=== PATIENT | female | born 1945 | race Caucasian/White ===

== ENCOUNTER 2019-11-25 06:00 | Inpatient (IN) ==
[2019-11-25] MEDS ORDERED: DEXTROSE 50% 25 GM/50 ML VIAL IV PRN (08:36)
[2019-11-25] MEDS ORDERED: GLUCAGON 1 MG VIAL IM PRN (08:36)
[2019-11-25] MEDS ORDERED: CEFUROXIME INJ 1,500 MG in SYRINGE 1 EACH IV ONE (08:36)
[2019-11-25] MEDS ORDERED: NITROGLYCERIN SL 0.4 MG TABLET SL PRN (08:46)
[2019-11-25] MEDS ORDERED: ZALEPLON 5 MG CAPSULE PO PRN (08:46)
[2019-11-25 10:24] LABS: Basophils % 0.7 % (0.0-0.8); Eosinophils # 0.2 10*3/uL (0.0-0.87); Eosinophils % 3.7 % (0.00-10.9); Hematocrit 41.7 VOL% (35.7-47.0); Hemoglobin 14.9 GM/DL (12.0-16.0); Immature Granulocytes % 0.2 %; Immature Granulocytes Absolute 0.01 #; Lymphocytes # 2.1 10*3/uL (1.4-4.0); Lymphocytes % 36.8 % (21.3-54.2); Mean Corpuscular HGB Conc 35.7 GM/DL (32-36); Mean Corpuscular Volume 96.8 FL (87-102); Mean Platelet Volume 10.2 FL (9.6-12.0); Monocytes % 9.8 % (1.7-12.7); Neutrophils % 48.8 % (38.7-73.9); Platelet Count 175 T/CUMM (130-400); Red Blood Count 4.31 MC/CUMM (3.8-5.5); Red Cell Distribution Width 11.9 % (9.3-17.3); White Blood Count 5.7 T/CUMM (4-12)
[2019-11-25 10:49] LABS: Albumin 4.2 G/DL (3.4-5.0); Bilirubin,Total 1.1 MG/DL (0.2-1.0); Calcium 9.4 MG/DL (8.5-10.1); Osmolality,Calculated 279.7 MOS/KG (273-304)
[2019-11-25] MEDS: SODIUM CHLORIDE 0.9% 1,000 ML IV SCH (11:00)
[2019-11-25] MEDS: CHLORHEXIDINE 0.12% ORAL RINSE 60 ML BOTTLE SWISH/SPIT SCH ×2 (11:22→21:05)
[2019-11-25] MEDS: CHLORHEXIDINE 4% SOLN 118 ML BOTTLE TOP SCH ×3 (11:24→21:05)
[2019-11-25] MEDS ORDERED: CLORAZEPATE 3.75 MG TABLET PO PRN (11:35)
[2019-11-25 11:46] LABS: ABG Base Excess 3.1 MMOL/L (-2.5-2.5); ABG HCO3 26.9 MMOL/L (20-26); ABG PCO2 38.5 MM HG (35-48); ABG PH 7.462 (7.35-7.45); ABG PO2 91.2 MM HG (80-95); ABG TCO2 28.1 MMOL/L (23-27); Allen Test Positive; Pt O2 Delivery Device Room Air
[2019-11-25] MEDS ORDERED: FAMOTIDINE 20 MG TABLET PO ONE (15:21)
[2019-11-25] MEDS ORDERED: DIAZEPAM 5 MG TABLET PO ONE (15:21)
[2019-11-25] MEDS: carvediloL 12.5 MG TABLET PO SCH (21:02)
[2019-11-26] MEDS: CHLORHEXIDINE 4% SOLN 118 ML BOTTLE TOP SCH (02:27)
[2019-11-26] MEDS ORDERED: PAPAVERINE 60 MG/2 ML VIAL ONE (04:23)
[2019-11-26] MEDS ORDERED: VANCOMYCIN 1,000 MG VIAL ONE (04:24)
[2019-11-26] MEDS ORDERED: VANCOMYCIN 500 MG VIAL ONE (04:24)
[2019-11-26] MEDS: carvediloL 12.5 MG TABLET PO SCH ×2 (05:40→10:44)
[2019-11-26] MEDS ORDERED: CALCIUM CHLORIDE 1,000 MG/10 ML VIAL IV ONE (05:40)
[2019-11-26] MEDS ORDERED: LIDOCAINE 2% 5 ML VIAL ONE ×2 (05:40→11:03)
[2019-11-26] MEDS ORDERED: MIDAZOLAM 10 MG/2 ML VIAL ONE ×2 (05:41→05:42)
[2019-11-26] MEDS ORDERED: SUFentanil 250 MCG/5 ML AMP ONE (05:41)
[2019-11-26] MEDS ORDERED: PHENYLEPHRINE DRIP 20 MG/250 ML PREMIX IV ONE (05:41)
[2019-11-26] MEDS ORDERED: HEPARIN/NACL 0.9% 2 UNITS/ML 500 ML IV ONE (05:41)
[2019-11-26] MEDS ORDERED: ePHEDrine 50 MG/ML VIAL ONE (05:42)
[2019-11-26] MEDS ORDERED: NITROGLYCERIN DRIP 50 MG/250 ML BOTTLE IV ONE (05:42)
[2019-11-26] MEDS ORDERED: ETOMIDATE 40 MG/20 ML VIAL IV ONE (05:42)
[2019-11-26] MEDS ORDERED: MINERAL OIL/PETROLATUM OPH OINT 3.5 GM TUBE ONE (05:42)
[2019-11-26] MEDS ORDERED: VECURONIUM 10 MG VIAL IV ONE (05:42)
[2019-11-26] MEDS ORDERED: LACTATED RINGERS 1,000 ML IV ONE (05:43)
[2019-11-26] MEDS ORDERED: AMINOCAPROIC ACID 5,000 MG/20 ML VIAL ONE (05:43)
[2019-11-26] MEDS ORDERED: SODIUM CHLORIDE 0.9% 250 ML IV ONE (05:43)
[2019-11-26] MEDS ORDERED: SODIUM CHLORIDE 0.9% 1,000 ML IV ONE (05:43)
[2019-11-26] MEDS ORDERED: CEFUROXIME INJ 1,500 MG in SYRINGE 1 EACH IV ONE (06:00)
[2019-11-26] MEDS ORDERED: DIAZEPAM 5 MG TABLET PO ONE (06:00)
[2019-11-26] MEDS ORDERED: FAMOTIDINE 20 MG TABLET PO ONE (06:00)
[2019-11-26 07:43] LABS: ABG Base Excess 2.3 MMOL/L (-2.5-2.5); ABG HCO3 26.4 MMOL/L (20-26); ABG PCO2 37.2 MM HG (35-48); ABG PH 7.453 (7.35-7.45); ABG TCO2 22.4 MMOL/L (23-27); Glucose Heart Surgery 114 MG/DL (74-106); Hematocrit Heart Surgery 41.8 PERCENT (37-47); Hemoglobin Heart Surgery 13.6 G/DL (12.0-16.0); Ionized Calcium Arterial 1.17 MMOL/L (1.21-1.46); PCO2 Patient Temp Arterial 37.2 MMHG; PH Patient Temp Arterial 7.453; Patient Temperature 37 CELCIUS; Potassium Heart/CVR 3.7 MMOL/L (3.5-5.1); Sodium Heart/CVR 140 MMOL/L (135-145)
[2019-11-26 07:46] LABS: Apearance,Urine CLEAR (Clear); Bilirubin,Urine Negative (Negative); Blood, Urine Small mg/dL (Negative); Glucose,Urine (UA) Negative (Negative); Ketones,Urine Negative (Negative); Nitrite,Urine Negative (Negative); Protein,Urine Negative; RBC,Urine 1 /HPF (0-4); Squamous Epithelial Cell,Urine Occasional /HPF (0-10); Urine Color Yellow (Yellow); Urine Specific Gravity 1.009 (1.001-1.035); Urine Urobilinogen < 2.0 EU/DL (0.2-1.0)
[2019-11-26] MEDS ORDERED: PHENYLEPHRINE DRIP 40 MG/250 ML PREMIX IV ONE (08:26)
[2019-11-26] MEDS ORDERED: NITROPRUSSIDE 50 MG/2 ML VIAL ONE ×2 (08:26→17:19)
[2019-11-26] MEDS ORDERED: SODIUM BICARBONATE 50 MEQ/50 ML VIAL IV ONE ×2 (08:27→11:03)
[2019-11-26] MEDS ORDERED: POTASSIUM CHLORIDE RIDER 100 ML IV ONE (08:27)
[2019-11-26] MEDS ORDERED: CALCIUM CHLORIDE 1,000 MG/10 ML SYRINGE IV ONE (08:27)
[2019-11-26 09:24] LABS: Hemoglobin Heart Surgery 8.7 G/DL (12.0-16.0); PCO2 Patient Temp Venous 32.1 MM HG; PH Patient Temp Venous 7.481; PO2 Patient Temp Venous 38.8 MM HG; Potassium Heart/CVR 4.2 MMOL/L (3.5-5.1); VBG Base Excess 0.2 MEQ/L (0-4); VBG HCO3 23.4 MEQ/L (24-28); VBG Oxygen Saturation 75.6 %; VBG PCO2 32.1 MMHG (41-51); VBG PH 7.481; VBG PO2 38.8 MMHG (17-40)
[2019-11-26 09:52] LABS: Hematocrit Heart Surgery 27.6 PERCENT (37-47); Hemoglobin Heart Surgery 8.9 G/DL (12.0-16.0); PCO2 Patient Temp Venous 28.1 MM HG; PH Patient Temp Venous 7.559; PO2 Patient Temp Venous 33.6 MM HG; Potassium Heart/CVR 4.5 MMOL/L (3.5-5.1); VBG Base Excess 3.4 MEQ/L (0-4); VBG HCO3 27.2 MEQ/L (24-28); VBG Oxygen Saturation 81.8 %; VBG PCO2 32.5 MMHG (41-51); VBG PH 7.513; VBG PO2 41.4 MMHG (17-40)
[2019-11-26 10:19] LABS: Hemoglobin Heart Surgery 8.3 G/DL (12.0-16.0); PCO2 Patient Temp Venous 30.2 MM HG; PH Patient Temp Venous 7.525; PO2 Patient Temp Venous 34.1 MM HG; Potassium Heart/CVR 4.5 MMOL/L (3.5-5.1); VBG Base Excess 2.4 MEQ/L (0-4); VBG HCO3 26.2 MEQ/L (24-28); VBG Oxygen Saturation 70.9 %; VBG PCO2 30.2 MMHG (41-51); VBG PH 7.525; VBG PO2 34.1 MMHG (17-40)
[2019-11-26] MEDS: SODIUM CHLORIDE 0.9% 1,000 ML IV SCH (10:44)
[2019-11-26] MEDS: CHLORHEXIDINE 0.12% ORAL RINSE 60 ML BOTTLE SWISH/SPIT SCH (10:45)
[2019-11-26 10:49] LABS: ABG Base Excess 1.2 MMOL/L (-2.5-2.5); ABG HCO3 25.5 MMOL/L (20-26); ABG PCO2 33.1 MM HG (35-48); ABG PH 7.477 (7.35-7.45); ABG TCO2 22.5 MMOL/L (23-27); Glucose Heart Surgery 238 MG/DL (74-106); Hematocrit Heart Surgery 27.1 PERCENT (37-47); Hemoglobin Heart Surgery 8.7 G/DL (12.0-16.0); Ionized Calcium Arterial 1.05 MMOL/L (1.21-1.46); PCO2 Patient Temp Arterial 33.1 MMHG; PH Patient Temp Arterial 7.477; Patient Temperature 37 CELCIUS; Sodium Heart/CVR 130 MMOL/L (135-145)
[2019-11-26] MEDS ORDERED: DEXTROSE 5% KCL 20 MEQ 20 MEQ/1,000 ML BAG IV ONE (11:03)
[2019-11-26] MEDS ORDERED: MAGNESIUM SULFATE 5 GM/10 ML VIAL IV ONE (11:03)
[2019-11-26] MEDS ORDERED: MANNITOL 100 GM/500 ML BAG IV ONE (11:03)
[2019-11-26] MEDS ORDERED: ALBUMIN 25% 25 GM/100 ML VIAL IV ONE (11:03)
[2019-11-26] MEDS ORDERED: HEPARIN 10,000 UNIT/10 ML VIAL ONE (11:04)
[2019-11-26] MEDS ORDERED: FUROSEMIDE 20 MG/2 ML VIAL ONE (11:04)
[2019-11-26] MEDS ORDERED: methylPREDNISolone SOD SUC 1,000 MG/8 ML VIAL ONE (11:04)
[2019-11-26] MEDS ORDERED: PROTAMINE SULFATE 50 MG/5 ML VIAL IV ONE ×2 (11:04→11:47)
[2019-11-26] MEDS ORDERED: PHENYLEPHRINE DRIP 40 MG/250 ML PREMIX IV PRN (11:22)
[2019-11-26] MEDS ORDERED: MORPHINE 4 MG/1 ML VIAL IV PRN (11:22)
[2019-11-26] MEDS ORDERED: MAGNESIUM SULF RIDER 2 GM in PREMIX 1 EACH IV PRN (11:22)
[2019-11-26] MEDS ORDERED: CALCIUM CHLORIDE 1,000 MG/10 ML SYRINGE IV PRN (11:22)
[2019-11-26] MEDS ORDERED: MIDAZOLAM 10 MG/2 ML VIAL IV PRN (11:22)
[2019-11-26] MEDS ORDERED: LACTATED RINGERS 250 ML IV PRN (11:22)
[2019-11-26] MEDS ORDERED: DEXTROSE 50% 25 GM/50 ML VIAL IV PRN ×2 (11:22)
[2019-11-26] MEDS ORDERED: VECURONIUM 10 MG VIAL IV PRN ×2 (11:22)
[2019-11-26] MEDS ORDERED: POTASSIUM CHLORIDE RIDER 10 MEQ in PREMIX 1 EACH IV PRN (11:22)
[2019-11-26] MEDS ORDERED: ONDANSETRON 4 MG/2 ML VIAL IV PRN (11:22)
[2019-11-26] MEDS ORDERED: ACETAMINOPHEN 650 MG SUPP RECTAL PRN (11:22)
[2019-11-26] MEDS ORDERED: INSULIN REGULAR 100 UNIT/ML IV ONE (11:22)
[2019-11-26] MEDS ORDERED: CHLORHEXIDINE 4% SOLN 118 ML BOTTLE TOP PRN (11:22)
[2019-11-26] MEDS ORDERED: NITROPRUSSIDE 100 MG in DEXTROSE 5% 250 ML IV PRN (11:22)
[2019-11-26] MEDS ORDERED: MIDAZOLAM 2 MG/2 ML VIAL IV PRN (11:22)
[2019-11-26] MEDS ORDERED: MORPHINE 10 MG/1 ML VIAL IV PRN (11:22)
[2019-11-26] MEDS ORDERED: MAGNESIUM SULF RIDER 4 GM in PREMIX 1 EACH IV PRN (11:22)
[2019-11-26] MEDS ORDERED: INSULIN REGULAR 100 UNIT/ML IV PRN (11:22)
[2019-11-26] MEDS ORDERED: SODIUM CHLORIDE 0.45% 1,000 ML IV SCH ×2 (11:30)
[2019-11-26] MEDS ORDERED: INSULIN REGULAR DRIP 100 ML IV SCH (11:30)
[2019-11-26 11:46] LABS: ABG Base Excess -0.3 MMOL/L (-2.5-2.5); ABG HCO3 24.2 MMOL/L (20-26); ABG PCO2 37.9 MM HG (35-48); ABG PH 7.412 (7.35-7.45); ABG TCO2 21.9 MMOL/L (23-27); Glucose Heart Surgery 204 MG/DL (74-106); Hematocrit Heart Surgery 30.3 PERCENT (37-47); Hemoglobin Heart Surgery 9.8 G/DL (12.0-16.0); Potassium Heart/CVR 3.4 MMOL/L (3.5-5.1)
[2019-11-26 11:47] LABS: Basophils % 0.3 % (0.0-0.8); Eosinophils # 0.1 10*3/uL (0.0-0.87); Eosinophils % 0.8 % (0.00-10.9); Hematocrit 27.5 VOL% (35.7-47.0); Hemoglobin 9.6 GM/DL (12.0-16.0); Immature Granulocytes % 0.4 %; Immature Granulocytes Absolute 0.03 #; Lymphocytes # 1.2 10*3/uL (1.4-4.0); Lymphocytes % 15.7 % (21.3-54.2); Mean Corpuscular HGB Conc 34.9 GM/DL (32-36); Mean Corpuscular Volume 98.2 FL (87-102); Mean Platelet Volume 10.1 FL (9.6-12.0); Monocytes % 6.1 % (1.7-12.7); Neutrophils % 76.7 % (38.7-73.9); Platelet Count 121 T/CUMM (130-400); Red Cell Distribution Width 11.9 % (9.3-17.3); White Blood Count 7.6 T/CUMM (4-12)
[2019-11-26 11:57] LABS: INR 1.3; Partial Thromboplastin Time 30.4 SECS (23.9-33.8)
[2019-11-26] MEDS: POTASSIUM CHLORIDE RIDER 20 MEQ in PREMIX 1 EACH IV PRN ×4 (12:00→18:50)
[2019-11-26] MEDS: ALBUMIN 5% 12.5 GM in PREMIX 1 EACH IV PRN ×2 (12:10→13:56)
[2019-11-26 12:14] LABS: Troponin I 5.44 NG/ML (0.00-0.045)
[2019-11-26 12:26] LABS: Albumin 2.6 G/DL (3.4-5.0); Bilirubin,Total 1.2 MG/DL (0.2-1.0); Calcium 8.9 MG/DL (8.5-10.1); Osmolality,Calculated 278.8 MOS/KG (273-304); Total Protein 4.7 G/DL (6.4-8.3)
[2019-11-26 13:17] LABS: ABG Base Excess -2.5 MMOL/L (-2.5-2.5); ABG HCO3 22.3 MMOL/L (20-26); ABG Oxygen Saturation 98.9 % (95-100); ABG PH 7.353 (7.35-7.45); Glucose Heart Surgery 191 MG/DL (74-106); Hematocrit Heart Surgery 29.8 PERCENT (37-47); Hemoglobin Heart Surgery 9.6 G/DL (12.0-16.0); Potassium Heart/CVR 4.6 MMOL/L (3.5-5.1)
[2019-11-26 15:59] LABS: ABG Base Excess -2.2 MMOL/L (-2.5-2.5); ABG HCO3 22.6 MMOL/L (20-26); ABG Oxygen Saturation 99.3 % (95-100); ABG PCO2 41.1 MM HG (35-48); ABG PH 7.358 (7.35-7.45); ABG TCO2 21.4 MMOL/L (23-27); Glucose Heart Surgery 152 MG/DL (74-106); Hematocrit Heart Surgery 27.8 PERCENT (37-47); Potassium Heart/CVR 3.8 MMOL/L (3.5-5.1)
[2019-11-26 18:39] LABS: ABG HCO3 22.7 MMOL/L (20-26); ABG Oxygen Saturation 97.9 % (95-100); ABG PCO2 43.1 MM HG (35-48); ABG PO2 125.9 MM HG (80-95); ABG TCO2 24.1 MMOL/L (23-27); Glucose Heart Surgery 165 MG/DL (74-106); Hemoglobin Heart Surgery 11.9 G/DL (12.0-16.0); Potassium Heart/CVR 4.4 MMOL/L (3.5-5.1)
[2019-11-26] MEDS: CEFUROXIME INJ 1,500 MG in SYRINGE 1 EACH IV SCH (18:50)
[2019-11-26 18:57] LABS: CKMB % 5.6 %
[2019-11-26 19:02] LABS: Troponin I 9.24 NG/ML (0.00-0.045)
[2019-11-26 19:53] LABS: ABG Base Excess -2.7 MMOL/L (-2.5-2.5); ABG HCO3 22.1 MMOL/L (20-26); ABG Oxygen Saturation 98.1 % (95-100); ABG PCO2 45.7 MM HG (35-48); ABG TCO2 21.2 MMOL/L (23-27); Glucose Heart Surgery 160 MG/DL (74-106); Hematocrit Heart Surgery 35.4 PERCENT (37-47); Hemoglobin Heart Surgery 11.5 G/DL (12.0-16.0)
[2019-11-26] MEDS: KETOROLAC 30 MG/1 ML VIAL IV SCH (20:19)
[2019-11-26 20:44] LABS: ABG Base Excess -2.9 MMOL/L (-2.5-2.5); ABG HCO3 21.9 MMOL/L (20-26); ABG Oxygen Saturation 95.9 % (95-100); ABG PCO2 45.2 MM HG (35-48); ABG PO2 84.6 MM HG (80-95); Glucose Heart Surgery 151 MG/DL (74-106); Hematocrit Heart Surgery 35.4 PERCENT (37-47); Hemoglobin Heart Surgery 11.5 G/DL (12.0-16.0); Potassium Heart/CVR 4.4 MMOL/L (3.5-5.1)
[2019-11-26] MEDS ORDERED: CHLORHEXIDINE 0.12% ORAL RINSE 60 ML BOTTLE SWISH/SPIT SCH (21:00)
[2019-11-26] MEDS ORDERED: FUROSEMIDE 40 MG/4 ML VIAL IV ONE (23:06)
[2019-11-27] MEDS: KETOROLAC 30 MG/1 ML VIAL IV SCH ×4 (02:11→20:59)
[2019-11-27 03:08] LABS: ABG Base Excess -3.8 MMOL/L (-2.5-2.5); ABG HCO3 21.3 MMOL/L (20-26); ABG Oxygen Saturation 96.6 % (95-100); ABG PH 7.356 (7.35-7.45); ABG PO2 98.6 MM HG (80-95); ABG TCO2 22.5 MMOL/L (23-27); Glucose Heart Surgery 114 MG/DL (74-106); Hemoglobin Heart Surgery 11.3 G/DL (12.0-16.0); Potassium Heart/CVR 3.7 MMOL/L (3.5-5.1)
[2019-11-27 03:16] LABS: Basophils % 0.1 % (0.0-0.8); Hematocrit 33.1 VOL% (35.7-47.0); Hemoglobin 11.3 GM/DL (12.0-16.0); Immature Granulocytes % 0.5 %; Immature Granulocytes Absolute 0.05 #; Lymphocytes % 9.1 % (21.3-54.2); Mean Corpuscular HGB Conc 34.1 GM/DL (32-36); Mean Corpuscular Volume 94.6 FL (87-102); Mean Platelet Volume 10.8 FL (9.6-12.0); Monocytes % 5.8 % (1.7-12.7); Neutrophils % 84.5 % (38.7-73.9); Platelet Count 104 T/CUMM (130-400); Red Cell Distribution Width 15.5 % (9.3-17.3); White Blood Count 10.8 T/CUMM (4-12)
[2019-11-27] MEDS: POTASSIUM CHLORIDE RIDER 20 MEQ in PREMIX 1 EACH IV PRN (03:28)
[2019-11-27 03:37] LABS: Albumin 3.5 G/DL (3.4-5.0); Bilirubin,Direct 0.17 MG/DL (0.0-0.20); Bilirubin,Total 0.5 MG/DL (0.2-1.0); Calcium 7.9 MG/DL (8.5-10.1); Osmolality,Calculated 287.8 MOS/KG (273-304); Total Protein 5.8 G/DL (6.4-8.3)
[2019-11-27 03:40] LABS: CKMB % 5.9 %
[2019-11-27 03:44] LABS: Troponin I 23.2 NG/ML (0.00-0.045)
[2019-11-27] MEDS ORDERED: NITROGLYCERIN SL 0.4 MG TABLET SL PRN (06:20)
[2019-11-27] MEDS: CEFUROXIME INJ 1,500 MG in SYRINGE 1 EACH IV SCH (06:29)
[2019-11-27] MEDS: LEVOTHYROXINE 112 MCG TABLET PO SCH (06:29)
[2019-11-27] MEDS ORDERED: ONDANSETRON 4 MG/2 ML VIAL IV PRN (07:09)
[2019-11-27] MEDS ORDERED: MAGNESIUM SULF RIDER 2 GM in PREMIX 1 EACH IV PRN (07:09)
[2019-11-27] MEDS ORDERED: ZALEPLON 5 MG CAPSULE PO PRN (07:09)
[2019-11-27] MEDS ORDERED: MAGNESIUM HYDROXIDE SUSP 30 ML UDCUP PO PRN (07:09)
[2019-11-27] MEDS ORDERED: MAGNESIUM SULF RIDER 4 GM in PREMIX 1 EACH IV PRN (07:09)
[2019-11-27] MEDS ORDERED: ACETAMINOPHEN 325 MG TABLET PO PRN (07:09)
[2019-11-27] MEDS ORDERED: ALUMINUM/MAGNES/SIMETH MAX STR 30 ML UDCUP PO PRN (07:09)
[2019-11-27] MEDS ORDERED: DEXTROSE 50% 25 GM/50 ML VIAL IV PRN ×2 (07:09)
[2019-11-27] MEDS ORDERED: GLUCAGON 1 MG VIAL IM PRN ×2 (07:09)
[2019-11-27] MEDS ORDERED: POTASSIUM CHLORIDE 20 MEQ TABLET PO PRN (07:09)
[2019-11-27] MEDS: INSULIN REGULAR 100 UNIT/ML SUBCUT SCH ×4 (08:15→21:19)
[2019-11-27] MEDS: FERROUS SULFATE 325 MG TABLET PO SCH (08:23)
[2019-11-27] MEDS: DOCUSATE SODIUM 100 MG CAPSULE PO SCH (08:23)
[2019-11-27] MEDS: ASPIRIN EC 325 MG TABLET PO SCH (08:23)
[2019-11-27] MEDS: amLODIPine 2.5 MG TABLET PO SCH (08:24)
[2019-11-27] MEDS: MAGNESIUM GLUCONATE 500 MG TABLET PO SCH (08:24)
[2019-11-27] MEDS: lisinopriL 20 MG TABLET PO SCH (08:25)
[2019-11-27] MEDS: carvediloL 12.5 MG TABLET PO SCH ×2 (08:25→20:58)
[2019-11-27] MEDS: MULTIVITAMIN (CENTRUM) TABLET PO SCH (08:25)
[2019-11-27] MEDS: OMEGA 3 ACID ETHYL ESTERS 1 GM CAPSULE PO SCH (08:26)
[2019-11-27] MEDS: COENZYME Q10 100 MG CAPSULE PO SCH (08:26)
[2019-11-27] MEDS: PANTOPRAZOLE 40 MG TABLET PO SCH (08:26)
[2019-11-27] MEDS: NON-FORMULARY MEDICATION (Cyanocobalamin (Vitamin B-12) [Vitamin B-12] 2,500 MCG) SL SCH (08:28)
[2019-11-27] MEDS: CHLORHEXIDINE 0.12% ORAL RINSE 60 ML BOTTLE SWISH/SPIT SCH ×2 (08:33→21:19)
[2019-11-27] MEDS: SODIUM CHLOR 0.45% KCL 20 MEQ 20 MEQ/1,000 ML BAG IV SCH (09:00)
[2019-11-27] MEDS: oxyCODONE/ACETAMINOPHEN 5-325 MG TABLET PO PRN ×2 (16:20→20:58)
[2019-11-27] MEDS: PHENOBARBITAL PO SCH (22:47)
[2019-11-27] MEDS: BELLADONNA ALKALOIDS PO SCH (22:47)
[2019-11-27] MEDS: ERGOTAMINE PO SCH (22:47)
[2019-11-28] MEDS: KETOROLAC 30 MG/1 ML VIAL IV SCH ×4 (02:18→20:58)
[2019-11-28] MEDS: oxyCODONE/ACETAMINOPHEN 5-325 MG TABLET PO PRN ×3 (02:19→14:22)
[2019-11-28 05:16] LABS: Basophils % 0.2 % (0.0-0.8); Eosinophils # 0.1 10*3/uL (0.0-0.87); Eosinophils % 0.6 % (0.00-10.9); Hematocrit 26.2 VOL% (35.7-47.0); Hemoglobin 8.7 GM/DL (12.0-16.0); Immature Granulocytes % 0.6 %; Immature Granulocytes Absolute 0.05 #; Lymphocytes # 1.6 10*3/uL (1.4-4.0); Lymphocytes % 18.8 % (21.3-54.2); Mean Corpuscular HGB Conc 33.2 GM/DL (32-36); Mean Corpuscular Volume 97.4 FL (87-102); Mean Platelet Volume 10.9 FL (9.6-12.0); Monocytes % 8.4 % (1.7-12.7); Neutrophils % 71.4 % (38.7-73.9); Platelet Count 77 T/CUMM (130-400); Red Blood Count 2.69 MC/CUMM (3.8-5.5); Red Cell Distribution Width 15.2 % (9.3-17.3); White Blood Count 8.3 T/CUMM (4-12)
[2019-11-28 05:37] LABS: Albumin 2.8 G/DL (3.4-5.0); Bilirubin,Direct 0.15 MG/DL (0.0-0.20); Bilirubin,Indirect 0.3 MG/DL (0.0-1.0); Bilirubin,Total 0.4 MG/DL (0.2-1.0); CKMB % 1.5 %; Calcium 8.1 MG/DL (8.5-10.1); Osmolality,Calculated 280.5 MOS/KG (273-304); Total Protein 5.5 G/DL (6.4-8.3)
[2019-11-28 05:39] LABS: Troponin I 11.3 NG/ML (0.00-0.045)
[2019-11-28 05:51] LABS: Band Neutrophils 2 % (0-10); Lymphocytes 16 % (20-55); Segmented Neutrophils 77 % (50-85); Total Cells Counted 100
[2019-11-28 05:52] LABS: Microcytosis Slight
[2019-11-28] MEDS ORDERED: FUROSEMIDE 40 MG/4 ML VIAL IV ONE (06:00)
[2019-11-28] MEDS: LEVOTHYROXINE 112 MCG TABLET PO SCH (06:27)
[2019-11-28] MEDS: PANTOPRAZOLE 40 MG TABLET PO SCH (09:29)
[2019-11-28] MEDS: MULTIVITAMIN (CENTRUM) TABLET PO SCH (09:30)
[2019-11-28] MEDS: FERROUS SULFATE 325 MG TABLET PO SCH ×2 (09:30→20:55)
[2019-11-28] MEDS: carvediloL 12.5 MG TABLET PO SCH ×2 (09:30→20:55)
[2019-11-28] MEDS: COENZYME Q10 100 MG CAPSULE PO SCH (09:30)
[2019-11-28] MEDS: SIMVASTATIN 20 MG TABLET PO SCH (09:30)
[2019-11-28] MEDS: ASPIRIN EC 325 MG TABLET PO SCH (09:31)
[2019-11-28] MEDS: lisinopriL 20 MG TABLET PO SCH (09:31)
[2019-11-28] MEDS: DOCUSATE SODIUM 100 MG CAPSULE PO SCH (09:31)
[2019-11-28] MEDS: MAGNESIUM GLUCONATE 500 MG TABLET PO SCH (09:32)
[2019-11-28] MEDS: INSULIN REGULAR 100 UNIT/ML SUBCUT SCH ×4 (09:32→21:21)
[2019-11-28] MEDS: NON-FORMULARY MEDICATION (Cyanocobalamin (Vitamin B-12) [Vitamin B-12] 2,500 MCG) SL SCH (09:32)
[2019-11-28] MEDS: OMEGA 3 ACID ETHYL ESTERS 1 GM CAPSULE PO SCH (09:32)
[2019-11-28] MEDS: CHLORHEXIDINE 0.12% ORAL RINSE 60 ML BOTTLE SWISH/SPIT SCH ×2 (09:33→21:00)
[2019-11-28] MEDS: amLODIPine 2.5 MG TABLET PO SCH (11:08)
[2019-11-28] MEDS ORDERED: AMIODARONE INJ 450 MG in DEXTROSE 5% 241 ML IV SCH ×2 (11:30→17:30)
[2019-11-28] MEDS: SODIUM CHLOR 0.45% KCL 20 MEQ 20 MEQ/1,000 ML BAG IV SCH (11:45)
[2019-11-28] MEDS: GABAPENTIN 100 MG CAPSULE PO SCH ×3 (14:22→20:55)
[2019-11-28] MEDS: PHENOBARBITAL PO SCH (18:31)
[2019-11-28] MEDS: BELLADONNA ALKALOIDS PO SCH (18:31)
[2019-11-28] MEDS: ERGOTAMINE PO SCH (18:31)
[2019-11-28] MEDS: ASCORBIC ACID 500 MG TABLET PO SCH (20:55)
[2019-11-28] MEDS: AMIODARONE INJ 450 MG in DEXTROSE 5% 241 ML IV SCH (21:00)
[2019-11-29] MEDS: KETOROLAC 30 MG/1 ML VIAL IV SCH ×4 (02:39→21:26)
[2019-11-29 05:58] LABS: Basophils % 0.2 % (0.0-0.8); Eosinophils # 0.3 10*3/uL (0.0-0.87); Eosinophils % 3.1 % (0.00-10.9); Hematocrit 26.9 VOL% (35.7-47.0); Hemoglobin 8.9 GM/DL (12.0-16.0); Immature Granulocytes % 0.6 %; Immature Granulocytes Absolute 0.05 #; Lymphocytes # 1.8 10*3/uL (1.4-4.0); Lymphocytes % 21.3 % (21.3-54.2); Mean Corpuscular HGB Conc 33.1 GM/DL (32-36); Mean Corpuscular Volume 96.8 FL (87-102); Monocytes % 8.1 % (1.7-12.7); Neutrophils % 66.7 % (38.7-73.9); Platelet Count 94 T/CUMM (130-400); Red Blood Count 2.78 MC/CUMM (3.8-5.5); Red Cell Distribution Width 14.6 % (9.3-17.3); White Blood Count 8.3 T/CUMM (4-12)
[2019-11-29] MEDS: LEVOTHYROXINE 112 MCG TABLET PO SCH (06:05)
[2019-11-29 06:22] LABS: Hypochromasia 1+; Microcytosis Slight; Platelet Estimate Decreased
[2019-11-29 06:28] LABS: Alanine Aminotransferase 64 U/L (13-56); Albumin 2.7 G/DL (3.4-5.0); Alkaline Phosphatase 56 U/L (45-117); Aspartate Amino Transferase 37 U/L (0-37); Bilirubin,Indirect 0.5 MG/DL (0.0-1.0); Blood Urea Nitrogen 19 MG/DL (7-18); Calcium 8.3 MG/DL (8.5-10.1); Estimated Glom Filtration Rate 82 ML/MIN; Glucose 99 MG/DL (74-106); Osmolality,Calculated 276.7 MOS/KG (273-304); Total Protein 5.7 G/DL (6.4-8.3)
[2019-11-29] MEDS: INSULIN REGULAR 100 UNIT/ML SUBCUT SCH ×4 (09:54→21:22)
[2019-11-29] MEDS: OMEGA 3 ACID ETHYL ESTERS 1 GM CAPSULE PO SCH (09:55)
[2019-11-29] MEDS: ASPIRIN EC 325 MG TABLET PO SCH (09:56)
[2019-11-29] MEDS: MAGNESIUM GLUCONATE 500 MG TABLET PO SCH (09:56)
[2019-11-29] MEDS: COENZYME Q10 100 MG CAPSULE PO SCH (09:56)
[2019-11-29] MEDS: MULTIVITAMIN (CENTRUM) TABLET PO SCH (09:56)
[2019-11-29] MEDS: carvediloL 12.5 MG TABLET PO SCH (09:56)
[2019-11-29] MEDS: DOCUSATE SODIUM 100 MG CAPSULE PO SCH (09:56)
[2019-11-29] MEDS: FERROUS SULFATE 325 MG TABLET PO SCH ×2 (09:57→21:33)
[2019-11-29] MEDS: PANTOPRAZOLE 40 MG TABLET PO SCH (09:57)
[2019-11-29] MEDS: ASCORBIC ACID 500 MG TABLET PO SCH ×2 (09:57→21:34)
[2019-11-29] MEDS: CHLORHEXIDINE 0.12% ORAL RINSE 60 ML BOTTLE SWISH/SPIT SCH ×2 (09:57→21:40)
[2019-11-29] MEDS: GABAPENTIN 100 MG CAPSULE PO SCH ×3 (09:57→21:34)
[2019-11-29] MEDS: NON-FORMULARY MEDICATION (Cyanocobalamin (Vitamin B-12) [Vitamin B-12] 2,500 MCG) SL SCH (10:02)
[2019-11-29] MEDS: AMIODARONE INJ 450 MG in DEXTROSE 5% 241 ML IV SCH (12:24)
[2019-11-29] MEDS ORDERED: METOPROLOL TARTRATE 25 MG TABLET ONE (13:50)
[2019-11-29] MEDS: METOPROLOL TARTRATE 25 MG TABLET PO SCH ×2 (14:48→21:34)
[2019-11-29] MEDS: AMIODARONE 200 MG TABLET PO SCH ×2 (14:48→21:33)
[2019-11-29] MEDS: PHENOBARBITAL PO SCH (18:03)
[2019-11-29] MEDS: ERGOTAMINE PO SCH (18:03)
[2019-11-29] MEDS: BELLADONNA ALKALOIDS PO SCH (18:03)
[2019-11-30] MEDS: KETOROLAC 30 MG/1 ML VIAL IV SCH (03:13)
[2019-11-30] MEDS ORDERED: KETOROLAC 30 MG/1 ML VIAL IV SCH (04:00)
[2019-11-30 04:55] LABS: Basophils % 0.2 % (0.0-0.8); Eosinophils # 0.2 10*3/uL (0.0-0.87); Hematocrit 40.3 VOL% (35.7-47.0); Hemoglobin 13.7 GM/DL (12.0-16.0); Immature Granulocytes % 0.7 %; Immature Granulocytes Absolute 0.03 #; Lymphocytes # 0.8 10*3/uL (1.4-4.0); Mean Platelet Volume 10.4 FL (9.6-12.0); Monocytes % 8.5 % (1.7-12.7); Neutrophils % 66.6 % (38.7-73.9); Platelet Count 71 T/CUMM (130-400); Red Blood Count 4.24 MC/CUMM (3.8-5.5); Red Cell Distribution Width 14.4 % (9.3-17.3)
[2019-11-30 05:20] LABS: Band Neutrophils 1 % (0-10); Eosinophils 5 % (0-10); Lymphocytes 22 % (20-55); Segmented Neutrophils 67 % (50-85); Total Cells Counted 100
[2019-11-30 05:21] LABS: Anisocytosis 1+; Platelet Estimate Decreased
[2019-11-30] MEDS: LEVOTHYROXINE 112 MCG TABLET PO SCH (06:31)
[2019-11-30] MEDS: INSULIN REGULAR 100 UNIT/ML SUBCUT SCH (08:59)
[2019-11-30] MEDS: MAGNESIUM GLUCONATE 500 MG TABLET PO SCH (09:05)
[2019-11-30] MEDS: AMIODARONE 200 MG TABLET PO SCH ×2 (09:05→20:10)
[2019-11-30] MEDS: OMEGA 3 ACID ETHYL ESTERS 1 GM CAPSULE PO SCH (09:05)
[2019-11-30] MEDS: MULTIVITAMIN (CENTRUM) TABLET PO SCH (09:06)
[2019-11-30] MEDS: COENZYME Q10 100 MG CAPSULE PO SCH (09:06)
[2019-11-30] MEDS: ASCORBIC ACID 500 MG TABLET PO SCH ×2 (09:06→20:09)
[2019-11-30] MEDS: PANTOPRAZOLE 40 MG TABLET PO SCH (09:06)
[2019-11-30] MEDS: GABAPENTIN 100 MG CAPSULE PO SCH ×3 (09:06→20:10)
[2019-11-30] MEDS: METOPROLOL TARTRATE 25 MG TABLET PO SCH ×2 (09:06→20:16)
[2019-11-30] MEDS: FERROUS SULFATE 325 MG TABLET PO SCH ×2 (09:06→20:10)
[2019-11-30] MEDS: DOCUSATE SODIUM 100 MG CAPSULE PO SCH (09:06)
[2019-11-30] MEDS: ASPIRIN EC 325 MG TABLET PO SCH (09:06)
[2019-11-30] MEDS: NON-FORMULARY MEDICATION (Cyanocobalamin (Vitamin B-12) [Vitamin B-12] 2,500 MCG) SL SCH (09:21)
[2019-11-30] MEDS: CHLORHEXIDINE 0.12% ORAL RINSE 60 ML BOTTLE SWISH/SPIT SCH ×2 (09:22→20:13)
[2019-11-30] MEDS: LACTULOSE 20 GM/30 ML UDCUP PO SCH ×2 (09:25→20:11)
[2019-11-30] MEDS ORDERED: INSULIN REGULAR 100 UNIT/ML SUBCUT PRN (10:00)
[2019-11-30] MEDS: BELLADONNA ALKALOIDS PO SCH (18:18)
[2019-11-30] MEDS: PHENOBARBITAL PO SCH (18:18)
[2019-11-30] MEDS: ERGOTAMINE PO SCH (18:18)
[2019-11-30] MEDS: oxyCODONE/ACETAMINOPHEN 5-325 MG TABLET PO PRN (20:10)
[2019-12-01] MEDS: LEVOTHYROXINE 112 MCG TABLET PO SCH (06:31)
[2019-12-01 06:49] LABS: Basophils % 0.6 % (0.0-0.8); Eosinophils # 0.3 10*3/uL (0.0-0.87); Eosinophils % 4.9 % (0.00-10.9); Hematocrit 27.1 VOL% (35.7-47.0); Immature Granulocytes % 0.9 %; Immature Granulocytes Absolute 0.06 #; Lymphocytes # 1.6 10*3/uL (1.4-4.0); Mean Corpuscular HGB Conc 33.2 GM/DL (32-36); Mean Corpuscular Volume 97.8 FL (87-102); Mean Platelet Volume 9.9 FL (9.6-12.0); Monocytes % 12.4 % (1.7-12.7); Neutrophils % 56.2 % (38.7-73.9); Red Cell Distribution Width 14.4 % (9.3-17.3)
[2019-12-01 06:52] LABS: Platelet Count 155 T/CUMM (130-400); Red Blood Count 2.77 MC/CUMM (3.8-5.5); White Blood Count 6.5 T/CUMM (4-12)
[2019-12-01 07:07] LABS: Alanine Aminotransferase 51 U/L (13-56); Albumin 2.6 G/DL (3.4-5.0); Alkaline Phosphatase 64 U/L (45-117); Aspartate Amino Transferase 35 U/L (0-37); Bilirubin,Indirect 0.3 MG/DL (0.0-1.0); Blood Urea Nitrogen 14 MG/DL (7-18); Calcium 8.4 MG/DL (8.5-10.1); Estimated Glom Filtration Rate 83 ML/MIN; Glucose 94 MG/DL (74-106); Osmolality,Calculated 279.4 MOS/KG (273-304); Total Protein 6.1 G/DL (6.4-8.3)
[2019-12-01] MEDS: MAGNESIUM GLUCONATE 500 MG TABLET PO SCH (08:58)
[2019-12-01] MEDS: MULTIVITAMIN (CENTRUM) TABLET PO SCH (08:58)
[2019-12-01] MEDS: ASPIRIN EC 325 MG TABLET PO SCH (08:58)
[2019-12-01] MEDS: COENZYME Q10 100 MG CAPSULE PO SCH (08:59)
[2019-12-01] MEDS: SIMVASTATIN 20 MG TABLET PO SCH (08:59)
[2019-12-01] MEDS: OMEGA 3 ACID ETHYL ESTERS 1 GM CAPSULE PO SCH (08:59)
[2019-12-01] MEDS: FERROUS SULFATE 325 MG TABLET PO SCH ×2 (08:59→21:37)
[2019-12-01] MEDS: GABAPENTIN 100 MG CAPSULE PO SCH ×3 (08:59→21:35)
[2019-12-01] MEDS: AMIODARONE 200 MG TABLET PO SCH ×2 (08:59→21:36)
[2019-12-01] MEDS: ASCORBIC ACID 500 MG TABLET PO SCH ×2 (09:00→21:36)
[2019-12-01] MEDS: DOCUSATE SODIUM 100 MG CAPSULE PO SCH (09:00)
[2019-12-01] MEDS: LACTULOSE 20 GM/30 ML UDCUP PO SCH ×2 (09:02→21:34)
[2019-12-01] MEDS: NON-FORMULARY MEDICATION (Cyanocobalamin (Vitamin B-12) [Vitamin B-12] 2,500 MCG) SL SCH (09:08)
[2019-12-01] MEDS: METOPROLOL TARTRATE 25 MG TABLET PO SCH ×2 (09:08→21:35)
[2019-12-01] MEDS: PANTOPRAZOLE 40 MG TABLET PO SCH (09:09)
[2019-12-01] MEDS: CHLORHEXIDINE 0.12% ORAL RINSE 60 ML BOTTLE SWISH/SPIT SCH ×2 (09:09→21:36)
[2019-12-01] MEDS: BELLADONNA ALKALOIDS PO SCH (18:05)
[2019-12-01] MEDS: ERGOTAMINE PO SCH (18:05)
[2019-12-01] MEDS: PHENOBARBITAL PO SCH (18:05)
[2019-12-02 05:37] LABS: Basophils % 0.5 % (0.0-0.8); Eosinophils # 0.4 10*3/uL (0.0-0.87); Eosinophils % 6.1 % (0.00-10.9); Hematocrit 29.2 VOL% (35.7-47.0); Hemoglobin 9.4 GM/DL (12.0-16.0); Immature Granulocytes Absolute 0.06 #; Lymphocytes # 1.4 10*3/uL (1.4-4.0); Lymphocytes % 23.4 % (21.3-54.2); Mean Corpuscular HGB Conc 32.2 GM/DL (32-36); Mean Platelet Volume 9.6 FL (9.6-12.0); Monocytes % 13.7 % (1.7-12.7); Neutrophils % 55.3 % (38.7-73.9); Platelet Count 178 T/CUMM (130-400); Red Blood Count 2.92 MC/CUMM (3.8-5.5); Red Cell Distribution Width 14.4 % (9.3-17.3); White Blood Count 5.9 T/CUMM (4-12)
[2019-12-02 06:15] LABS: Calcium 8.4 MG/DL (8.5-10.1); Osmolality,Calculated 273.7 MOS/KG (273-304)
[2019-12-02 06:23] LABS: Alanine Aminotransferase 56 U/L (13-56); Albumin 2.6 G/DL (3.4-5.0); Alkaline Phosphatase 70 U/L (45-117); Aspartate Amino Transferase 40 U/L (0-37); Bilirubin,Indirect 1.1 MG/DL (0.0-1.0); Blood Urea Nitrogen 11 MG/DL (7-18); Calcium 8.2 MG/DL (8.5-10.1); Estimated Glom Filtration Rate 87 ML/MIN; Glucose 95 MG/DL (74-106); Osmolality,Calculated 277.4 MOS/KG (273-304); Total Protein 5.6 G/DL (6.4-8.3)
[2019-12-02] MEDS: LEVOTHYROXINE 112 MCG TABLET PO SCH (06:28)
[2019-12-02] MEDS: ASPIRIN EC 325 MG TABLET PO SCH (08:32)
[2019-12-02] MEDS: COENZYME Q10 100 MG CAPSULE PO SCH (08:32)
[2019-12-02] MEDS: LACTULOSE 20 GM/30 ML UDCUP PO SCH ×2 (08:32→21:16)
[2019-12-02] MEDS: MULTIVITAMIN (CENTRUM) TABLET PO SCH (08:32)
[2019-12-02] MEDS: OMEGA 3 ACID ETHYL ESTERS 1 GM CAPSULE PO SCH (08:32)
[2019-12-02] MEDS: MAGNESIUM GLUCONATE 500 MG TABLET PO SCH (08:32)
[2019-12-02] MEDS: DOCUSATE SODIUM 100 MG CAPSULE PO SCH (08:33)
[2019-12-02] MEDS: METOPROLOL TARTRATE 25 MG TABLET PO SCH ×2 (08:33→21:17)
[2019-12-02] MEDS: ASCORBIC ACID 500 MG TABLET PO SCH ×2 (08:33→21:17)
[2019-12-02] MEDS: AMIODARONE 200 MG TABLET PO SCH ×2 (08:33→21:17)
[2019-12-02] MEDS: PANTOPRAZOLE 40 MG TABLET PO SCH (08:33)
[2019-12-02] MEDS: GABAPENTIN 100 MG CAPSULE PO SCH ×3 (08:33→21:17)
[2019-12-02] MEDS: FERROUS SULFATE 325 MG TABLET PO SCH (08:38)
[2019-12-02] MEDS: NON-FORMULARY MEDICATION (Cyanocobalamin (Vitamin B-12) [Vitamin B-12] 2,500 MCG) SL SCH (08:54)
[2019-12-02] MEDS: CHLORHEXIDINE 0.12% ORAL RINSE 60 ML BOTTLE SWISH/SPIT SCH ×2 (08:54→21:18)
[2019-12-02] MEDS: FUROSEMIDE 20 MG TABLET PO SCH (11:28)
[2019-12-02] MEDS: SPIRONOLACTONE 25 MG TABLET PO SCH (14:00)
[2019-12-02] MEDS: BELLADONNA ALKALOIDS PO SCH (21:16)
[2019-12-02] MEDS: PHENOBARBITAL PO SCH (21:16)
[2019-12-02] MEDS: ERGOTAMINE PO SCH (21:16)
[2019-12-03 05:36] LABS: Basophils % 0.6 % (0.0-0.8); Eosinophils # 0.4 10*3/uL (0.0-0.87); Eosinophils % 5.6 % (0.00-10.9); Hematocrit 30.1 VOL% (35.7-47.0); Hemoglobin 9.7 GM/DL (12.0-16.0); Immature Granulocytes % 1.4 %; Lymphocytes # 1.7 10*3/uL (1.4-4.0); Lymphocytes % 24.3 % (21.3-54.2); Mean Corpuscular HGB Conc 32.2 GM/DL (32-36); Mean Corpuscular Volume 99.3 FL (87-102); Mean Platelet Volume 9.6 FL (9.6-12.0); Monocytes % 12.9 % (1.7-12.7); Neutrophils % 55.2 % (38.7-73.9); Platelet Count 235 T/CUMM (130-400); Red Blood Count 3.03 MC/CUMM (3.8-5.5); Red Cell Distribution Width 14.6 % (9.3-17.3); White Blood Count 6.9 T/CUMM (4-12)
[2019-12-03] MEDS: LEVOTHYROXINE 112 MCG TABLET PO SCH (06:05)
[2019-12-03 06:17] LABS: Calcium 8.7 MG/DL (8.5-10.1); Osmolality,Calculated 276.5 MOS/KG (273-304)
[2019-12-03] MEDS ORDERED: LACTULOSE 20 GM/30 ML UDCUP PO SCH (07:23)
[2019-12-03] MEDS: NON-FORMULARY MEDICATION (Cyanocobalamin (Vitamin B-12) [Vitamin B-12] 2,500 MCG) SL SCH (09:00)
[2019-12-03] MEDS ORDERED: amLODIPine 2.5 MG TABLET PO SCH (09:00)
[2019-12-03] MEDS: AMIODARONE 200 MG TABLET PO SCH (09:10)
[2019-12-03] MEDS: COENZYME Q10 100 MG CAPSULE PO SCH (09:10)
[2019-12-03] MEDS: OMEGA 3 ACID ETHYL ESTERS 1 GM CAPSULE PO SCH (09:10)
[2019-12-03] MEDS: MULTIVITAMIN (CENTRUM) TABLET PO SCH (09:10)
[2019-12-03] MEDS: GABAPENTIN 100 MG CAPSULE PO SCH (09:10)
[2019-12-03] MEDS: SIMVASTATIN 20 MG TABLET PO SCH (09:10)
[2019-12-03] MEDS: ASPIRIN EC 325 MG TABLET PO SCH (09:10)
[2019-12-03] MEDS: MAGNESIUM GLUCONATE 500 MG TABLET PO SCH (09:10)
[2019-12-03] MEDS: DOCUSATE SODIUM 100 MG CAPSULE PO SCH (09:11)
[2019-12-03] MEDS: PANTOPRAZOLE 40 MG TABLET PO SCH (09:11)
[2019-12-03] MEDS: SPIRONOLACTONE 25 MG TABLET PO SCH (09:11)
[2019-12-03] MEDS: METOPROLOL TARTRATE 25 MG TABLET PO SCH (09:11)
[2019-12-03] MEDS: ASCORBIC ACID 500 MG TABLET PO SCH (09:11)
[2019-12-03] MEDS: FUROSEMIDE 20 MG TABLET PO SCH (09:11)
[2019-12-03] MEDS: CHLORHEXIDINE 0.12% ORAL RINSE 60 ML BOTTLE SWISH/SPIT SCH (09:15)
[2019-12-03 11:18] VITALS: BP 136/68
== END 2019-12-03 16:21 | disposition home health service (06) | DRG 236 ==
LOC: N.4E 08:33 → N.CVR 11-26 11:18 → N.TELES 11-27 09:37